=== PATIENT | male | born 1965 | race African-American/Black ===

== ENCOUNTER 2020-01-31 22:41 | Emergency (ER) | payer BC ==
[~2020-01-31] VITALS: Ht 198.1 cm; Wt 136.1 kg
[2020-01-31 22:41] VITALS: BP_SYST 137
--- NOTE | 2020-01-31 22:50 | NUR ---
Placed in room 3 . Placed on quality assurance monitor body, blood pressure machine and pulse oximeter. To gown for exam. Side rails up.
--- NOTE | 2020-01-31 23:00 | NUR ---
Pt present to ER for synopal episodes while using the bathroom x 2 hours ago. Pt states having 3 episodes of diarrhea. Pt states having similar signs and symptoms for food poison x 3 years ago. Denies sick contacts, medical history, and allergies.
--- NOTE | 2020-01-31 23:20 | NUR ---
ANANDA Purdy at bedside examining patient.
--- NOTE | 2020-01-31 23:29 | NUR ---
CT CONSENT W/ IODINE FORM REVIED AND SIGNED BY PATIENT. Placed in chart.
--- NOTE | 2020-01-31 23:49 | NUR ---
Dr Faulkner at bedside
[2020-02-01 00:15] LABS: BASOPHILS % (AUTO) 0.3 % (0.0-2.0); EOSINOPHILS # (AUTO) 0.1 K/uL (0.0-0.4); EOSINOPHILS % (AUTO) 0.9 % (0.0-4.0); HEMATOCRIT 43.7 % (36-54); HEMOGLOBIN 14.5 g/dL (14.0-18.0); LYMPHOCYTES # (AUTO) 0.9 K/uL (1.0-5.5); LYMPHOCYTES % (AUTO) 8.7 % (20.5-51.5); MEAN CORPUSCULAR HEMOGLOBIN 32 pg (27-31); MEAN CORPUSCULAR HGB CONC 33 % (32-36); MEAN CORPUSCULAR VOLUME 98 fL (79.0-98.0); MONOCYTES # (AUTO) 0.7 K/uL (0.0-1.0); MONOCYTES % (AUTO) 6.3 % (1.7-9.3); NEUTROPHILS # (AUTO) 8.9 K/uL (1.8-7.7); NEUTROPHILS % (AUTO) 83.8 % (40.0-70.0); PLATELET COUNT (AUTO) 176 K/uL (130-430); RED BLOOD CELL COUNT(AUTO) 4.47 MIL/uL (4.2-6.2); RED CELL DISTRIBUTION WIDTH 13.5 % (9.0-15.0); WHITE BLOOD COUNT (AUTO) 10.6 K/uL (4.8-10.8)
[2020-02-01] MEDS ORDERED: ONDANSETRON HCL 4 MG/2 ML VIAL IVP ONE (00:15)
[2020-02-01] MEDS ORDERED: NACL 0.9% 1,000 ML IV ONE (00:15)
[2020-02-01 00:28] LABS: ANION GAP 9 (5-15); CALCIUM 8.8 mg/dL (8.4-11.0); CHLORIDE 103 mmol/L (98-107); CREATININE 1.06 mg/dL (0.55-1.30); GLUCOSE 161 mg/dL (70-99); POTASSIUM 3.3 mmol/L (3.5-5.1); SODIUM SERUM 138 mmol/L (136-145); UREA NITROGEN, BLOOD 14 mg/dL (8-21)
[2020-02-01 00:53] LABS: ALANINE AMINOTRANSFERASE 30 U/L (12-78); ALBUMIN 3.7 g/dL (3.4-4.8); ASPARTATE AMINOTRANSFERASE 16 U/L (10-37); BILIRUBIN,DIRECT 0.1 mg/dL (0.0-0.3); TOTAL BILIRUBIN 0.3 mg/dL (0.0-1.0)
[2020-02-01 00:54] LABS: GFR AFRICAN AMERICAN 93 mL/min (>90)
--- NOTE | 2020-02-01 01:00 | NUR ---
Pt taken to CT via wheelchair accompained by Carolin TEJEDA
--- NOTE | 2020-02-01 01:40 | NUR ---
UA collected and sent to lab.
[2020-02-01 02:27] LABS: BILIRUBIN,URINE NEGATIVE (NEGATIVE); BLOOD, URINE NEGATIVE (NEGATIVE); CLARITY/URINE CLEAR (CLEAR); COLOR,URINE YELLOW (YELLOW); GLUCOSE,URINE NEGATIVE (NEGATIVE); KETONES,URINE NEGATIVE (NEGATIVE); LEUKOCYTE ESTERASE ,URINE NEGATIVE (NEGATIVE); NITRITE, URINE NEGATIVE (NEGATIVE); PROTEIN URINE NEGATIVE (NEGATIVE); UROBILINOGEN,URINE 0.2 (0.2-1.0)
[2020-02-01] MEDS ORDERED: POTASSIUM CHLORIDE 20 MEQ TAB.PRT.SR PO ONE (02:30)
[2020-02-01 02:39] VITALS: BP_SYST 137
--- NOTE | 2020-02-01 02:39 | NUR ---
Patient given written and verbal discharge instructions and verbalizes understanding. ER MD discussed with patient the results and treatment provided. Patient in stable condition. ID arm band removed. IV catheter removed intact and dressing applied, no active bleeding. Rx of zofran given. Patient educated on pain management and to follow up with PMD. Opportunity for questions provided and answered. Medication side effect fact sheet provided.
== END 2020-02-01 02:39 | disposition home or self-care (01) ==
LOC: SED 22:41
DX: R10.12 Left upper quadrant pain (principal); R55 Syncope and collapse
CPT/HCPCS: 36415; 71045; 74177; 76376; 80048; 80076; 81003; 83880; 84484; 85025; 96374; 99285; J2405; J7030; Q9967; 93005